=== PATIENT | male | born 1970 | race Caucasian/White ===

== ENCOUNTER 2021-04-03 19:25 | Inpatient (IN) | payer MEDICARE, OTHER ==
[~2021-04-03] VITALS: Ht 188 cm; Wt 81.2 kg
[~2021-04-03 19:25] MED LIST: CYMBALTA 30MG C30 MG PO; KEFLEX250 MG PO; NEURONTIN400 MG PO; PREDNISONE 20MG20 MG PO; PROTONIX 40MG T40 MG PO; TRAZODONE 100M100 MG PO; ZANAFLEX4 M1 PO; ZANAFLEX4 MG PO
[2021-04-03 20:20] LABS: BASOPHIL 0.5 % (0-2); EOSINOPHIL 0.1 % (0-5); HCT 38.7 % (42.0-52.0); HGB 13.1 g/dl (13.2-18.0); LYMPHOCYTE 29.7 % (15-48); MCH 30.5 pg (25.0-31.0); MCHC 33.9 g/dL (32.0-36.0); MONOCYTE 8.3 % (0-12); NRBC 0; PLT 276 K/uL (150-400); RDW 13.5 % (11.5-14.0); WBC 10.4 K/uL (4.0-10.5)
[2021-04-03 20:34] LABS: ALBUMIN 3.8 g/dL (3.4-5.0); BILIRUBIN - TOTAL 0.2 mg/dL (0.2-1.0); BUN/CREAT RATIO (CALC) 18.4 RATIO; CREATININE 0.87 mg/dL (0.67-1.17); GLOBULIN (CALCULATION) 2.6 g/dL; TOTAL PROTEIN 6.4 g/dL (6.4-8.2)
[2021-04-03 20:48] LABS: LACTIC ACID 1.4 mmol/L (0.4-1.9)
[2021-04-03 23:45] LABS: BILIRUBIN NEGATIVE (NEGATIVE); BLOOD NEGATIVE Ery/uL (NEGATIVE); CLARITY CLEAR (CLEAR); COLOR YELLOW (YELLOW); GLUCOSE (U) NORMAL (NORMAL); LEUKOCYTES NEGATIVE Leu/uL (NEGATIVE); NITRITE NEGATIVE (NEGATIVE); PROTEIN NEGATIVE (NEGATIVE); UROBILINOGEN 0.2 mg/dL (0.2-1.0); pH 6.5 (5.0-9.0)
[2021-04-04] MEDS ORDERED: OXYCODONE HCL10 MG PO (00:14)
[2021-04-04] MEDS ORDERED: REMERON15 MG PO (00:15)
[2021-04-04] MEDS ORDERED: HYDRALAZINE 10M10 MG PO (00:16)
[2021-04-04] MEDS ORDERED: MAXALT10 MG PO (00:17)
--- NOTE | 2021-04-04 02:32 | NUR ---
RT AT BEDSIDE AT THIS TIME TO PERFORM EKG.
[2021-04-04 06:11] LABS: BASOPHIL 0.4 % (0-2); EOSINOPHIL 0.8 % (0-5); HCT 38.2 % (42.0-52.0); HGB 12.8 g/dl (13.2-18.0); LYMPHOCYTE 12.3 % (15-48); MCH 30.7 pg (25.0-31.0); MCHC 33.5 g/dL (32.0-36.0); MCV 91.6 fL (78.0-100.0); MONOCYTE 4.7 % (0-12); MPV 11.3 fL (6.0-9.5); NEUTROPHIL 81.3 % (41-80); NRBC 0; PLT 265 K/uL (150-400); RBC 4.17 M/uL (4.70-6.00); RDW 13.6 % (11.5-14.0); WBC 14.6 K/uL (4.0-10.5)
[2021-04-04 06:29] LABS: ALBUMIN 3.6 g/dL (3.4-5.0); BILIRUBIN - TOTAL 0.3 mg/dL (0.2-1.0); BUN/CREAT RATIO (CALC) 18.2 RATIO; CREATININE 0.88 mg/dL (0.67-1.17); GLOBULIN (CALCULATION) 2.4 g/dL; POTASSIUM 4.4 mmol/L (3.5-5.1)
[2021-04-04 10:57] LABS: BASOPHIL 0.2 % (0-2); EOSINOPHIL 0 % (0-5); HCT 38.7 % (42.0-52.0); HGB 12.9 g/dl (13.2-18.0); LYMPHOCYTE 8.6 % (15-48); MCH 30.8 pg (25.0-31.0); MCHC 33.3 g/dL (32.0-36.0); MCV 92.4 fL (78.0-100.0); MONOCYTE 1.2 % (0-12); MPV 10.9 fL (6.0-9.5); NEUTROPHIL 89.6 % (41-80); NRBC 0; PLT 244 K/uL (150-400); RBC 4.19 M/uL (4.70-6.00); RDW 13.4 % (11.5-14.0); WBC 9.8 K/uL (4.0-10.5)
[2021-04-04 11:19] LABS: ALBUMIN 3.5 g/dL (3.4-5.0); BILIRUBIN - TOTAL 0.4 mg/dL (0.2-1.0); CREATININE 0.82 mg/dL (0.67-1.17); GLOBULIN (CALCULATION) 2.9 g/dL; MAGNESIUM 1.9 mg/dL (1.8-2.4); PHOSPHORUS 4.7 mg/dL (2.6-4.7); POTASSIUM 4.7 mmol/L (3.5-5.1); TOTAL PROTEIN 6.4 g/dL (6.4-8.2)
[2021-04-04 16:16] LABS: BASOPHIL 0.2 % (0-2); EOSINOPHIL 0 % (0-5); HCT 36.9 % (42.0-52.0); HGB 12.5 g/dl (13.2-18.0); LYMPHOCYTE 18.1 % (15-48); MCH 30.9 pg (25.0-31.0); MCHC 33.9 g/dL (32.0-36.0); MCV 91.3 fL (78.0-100.0); MONOCYTE 4.9 % (0-12); NEUTROPHIL 76.3 % (41-80); NRBC 0; PLT 242 K/uL (150-400); RBC 4.04 M/uL (4.70-6.00); RDW 13.3 % (11.5-14.0); WBC 8.7 K/uL (4.0-10.5)
[2021-04-05 08:49] LABS: BASOPHIL 0.6 % (0-2); EOSINOPHIL 0.9 % (0-5); HCT 36.7 % (42.0-52.0); HGB 12.4 g/dl (13.2-18.0); LYMPHOCYTE 34.4 % (15-48); MCH 30.5 pg (25.0-31.0); MCHC 33.8 g/dL (32.0-36.0); MCV 90.2 fL (78.0-100.0); MONOCYTE 8.3 % (0-12); NEUTROPHIL 55.6 % (41-80); NRBC 0; PLT 245 K/uL (150-400); RBC 4.07 M/uL (4.70-6.00); RDW 13.4 % (11.5-14.0); WBC 12.4 K/uL (4.0-10.5)
[2021-04-05 09:31] LABS: ALBUMIN 3.6 g/dL (3.4-5.0); BILIRUBIN - TOTAL 0.5 mg/dL (0.2-1.0); BUN/CREAT RATIO (CALC) 12.9 RATIO; CREATININE 0.85 mg/dL (0.67-1.17); GLOBULIN (CALCULATION) 2.5 g/dL; MAGNESIUM 1.9 mg/dL (1.8-2.4); TOTAL PROTEIN 6.1 g/dL (6.4-8.2)
[2021-04-06 05:53] LABS: BASOPHIL 0.6 % (0-2); EOSINOPHIL 4.3 % (0-5); HCT 37.2 % (42.0-52.0); HGB 12.6 g/dl (13.2-18.0); LYMPHOCYTE 34.6 % (15-48); MCH 30.6 pg (25.0-31.0); MCHC 33.9 g/dL (32.0-36.0); MCV 90.3 fL (78.0-100.0); MONOCYTE 8.7 % (0-12); NEUTROPHIL 51.5 % (41-80); NRBC 0; PLT 233 K/uL (150-400); RBC 4.12 M/uL (4.70-6.00); RDW 13.2 % (11.5-14.0)
[2021-04-06] MEDS ORDERED: NORVASC5 MG PO (09:01)
== END 2021-04-06 09:30 | disposition home or self-care (01) | DRG 394 ==
LOC: FER 19:25 → FMS 22:31
PROVIDERS: Internal Medicine; Nurse Practitioner; Physician Assistant; ADMIT Internal Medicine
DX: K55.9 Vascular disorder of intestine, unspecified (principal); E87.2 Acidosis; I10 Essential (primary) hypertension; R07.89 Other chest pain; F17.210 Nicotine dependence, cigarettes, uncomplicated; Z91.19 Patient's noncompliance with other medical treatment and regimen; Z86.19 Personal history of other infectious and parasitic diseases; G89.29 Other chronic pain; F41.9 Anxiety disorder, unspecified; K43.2 Incisional hernia without obstruction or gangrene; I65.23 Occlusion and stenosis of bilateral carotid arteries; Z90.49 Acquired absence of other specified parts of digestive tract; Z98.890 Other specified postprocedural states; Z79.899 Other long term (current) drug therapy; Z88.6 Allergy status to analgesic agent; Z88.5 Allergy status to narcotic agent; Z88.8 Allergy status to other drugs, medicaments and biological substances; Z98.1 Arthrodesis status
CPT/HCPCS: 36415; 71045; 80053; 80061; 81001; 83605; 83735; 84100; 84484; 85025; 93005; 94640; 97162; 97166; 97530-GP; 97535; G0378; J0360; J1170; J1650; J2270; J2405; J2543; J2920; J7030; J7040; J7120; Q9967

== ENCOUNTER 2021-04-23 22:03 | Emergency (ER) | payer MEDICARE, OTHER ==
[~2021-04-23 22:03] MED LIST changes: +HYDRALAZINE 10M10 MG PO; +MAXALT10 MG PO; +NORVASC5 MG PO; +OXYCODONE HCL10 MG PO; +REMERON15 MG PO
[2021-04-23 22:55] LABS: BASOPHIL 0.5 % (0-2); EOSINOPHIL 0.3 % (0-5); HCT 40.5 % (42.0-52.0); LYMPHOCYTE 35.5 % (15-48); MCH 30.4 pg (25.0-31.0); MCHC 34.6 g/dL (32.0-36.0); MCV 87.9 fL (78.0-100.0); MONOCYTE 8.5 % (0-12); MPV 11.3 fL (6.0-9.5); NEUTROPHIL 54.7 % (41-80); NRBC 0; RBC 4.61 M/uL (4.70-6.00); RDW 12.9 % (11.5-14.0); WBC 8.6 K/uL (4.0-10.5)
[2021-04-23 22:57] LABS: BILIRUBIN NEGATIVE (NEGATIVE); BLOOD NEGATIVE Ery/uL (NEGATIVE); CLARITY CLEAR (CLEAR); COLOR YELLOW (YELLOW); GLUCOSE (U) NORMAL (NORMAL); LEUKOCYTES NEGATIVE Leu/uL (NEGATIVE); NITRITE NEGATIVE (NEGATIVE); PROTEIN NEGATIVE (NEGATIVE); SPECIFIC GRAVITY <=1.005 (1.001-1.030); UROBILINOGEN 0.2 mg/dL (0.2-1.0); pH 6.5 (5.0-9.0)
[2021-04-23 22:58] LABS: PLT 195 K/uL (150-400)
[2021-04-23 23:00] LABS: AMPHETAMINES NEGATIVE (NEGATIVE); BARBITURATES NEGATIVE (NEGATIVE); ECSTASY (MDMA) NEGATIVE (NEGATIVE); MARIJUANA (THC) POSITIVE (NEGATIVE); METHADONE NEGATIVE (NEGATIVE); OPIATES NEGATIVE (NEGATIVE); OXYCODONE NEGATIVE (NEGATIVE)
[2021-04-23 23:07] LABS: LACTIC ACID 1.4 mmol/L (0.4-1.9)
[2021-04-23 23:08] LABS: ALBUMIN 3.8 g/dL (3.4-5.0); ALKALINE PHOSHATASE 102 U/L (46-116); ALT 24 U/L (16-63); AST 20 U/L (15-37); BILIRUBIN - TOTAL 0.3 mg/dL (0.2-1.0); BUN 14 mg/dL (7-18); BUN/CREAT RATIO (CALC) 19.4 RATIO; CHLORIDE 104 mmol/L (98-107); CO2 (BICARBONATE) 27 mmol/L (21-32); CREATININE 0.72 mg/dL (0.67-1.17); GLOBULIN (CALCULATION) 3.3 g/dL; GLUCOSE 141 mg/dL (74-106); LDH 173 U/L (85-227); LIPASE 108 U/L (73-393); MAGNESIUM 1.9 mg/dL (1.8-2.4); POTASSIUM 3.9 mmol/L (3.5-5.1); TOTAL PROTEIN 7.1 g/dL (6.4-8.2)
[2021-04-23] MEDS ORDERED: BENTYL10 MG PO (23:43)
== END 2021-04-24 00:12 | disposition home or self-care (01) ==
LOC: FER 22:03
PROVIDERS: Emergency Medicine
DX: R10.9 Unspecified abdominal pain (principal); G89.29 Other chronic pain; R11.2 Nausea with vomiting, unspecified; R07.9 Chest pain, unspecified; R51.9 Headache, unspecified; I10 Essential (primary) hypertension; F17.290 Nicotine dependence, other tobacco product, uncomplicated; Z88.5 Allergy status to narcotic agent; Z88.6 Allergy status to analgesic agent
CPT/HCPCS: 36415; 71045; 80053; 80305; 81003; 83605; 83615; 83690; 83735; 84145; 84484; 85025; 93005; G0480; J0500; J7030